=== PATIENT | female | born 1975 | race African-American/Black ===

== ENCOUNTER 2024-05-14 13:59 | Emergency (ER) | payer OTHER ==
[~2024-05-14] VITALS: Ht 152.4 cm; Wt 73.5 kg
[2024-05-14 14:09] VITALS: TEMP 98.5
[2024-05-14] MEDS: DIAZEPAM 2 MG TAB PO ONE (14:53)
[2024-05-14 15:06] LABS: BASOPHILS # (AUTO) 0.1 (0.0-0.1); BASOPHILS % 0.7 % (0.0-1.0); EOSINOPHILS # (AUTO) 0.1 (0.0-0.4); EOSINOPHILS % 1.4 % (0.0-6.0); HEMATOCRIT 45.4 % (34.2-44.1); HEMOGLOBIN 15.3 g/dL (12.0-16.0); LYMPHOCYTES # (AUTO) 2.3 (1.0-3.2); LYMPHOCYTES % 23.1 % (18.0-39.1); MEAN CORPUSCULAR HEMOGLOBIN 29.4 pg (28-32); MEAN CORPUSCULAR HGB CONC 33.7 g/dL (31-35); MEAN CORPUSCULAR VOLUME 87.1 fL (81-99); MONOCYTES # (AUTO) 0.6 (0.2-0.8); MONOCYTES % 5.8 % (4.4-11.3); NEUTROPHILS # (AUTO) 6.7 (2.1-6.9); NEUTROPHILS % 68.5 % (38.7-80.0); PLATELET COUNT 316 x10e3/uL (140-360); RED BLOOD COUNT 5.21 x10e6/uL (3.6-5.1); RED CELL DISTRIBUTION WIDTH 12.4 % (11.7-14.4); WHITE BLOOD COUNT 9.77 x10e3/uL (4.8-10.8)
[2024-05-14 15:44] LABS: ALBUMIN 4.3 g/dL (3.5-5.0); ALBUMIN/GLOBULIN RATIO 1.2 (0.8-2.0); ANION GAP 15.3 mmol/L (8-16); BILIRUBIN,TOTAL 0.5 mg/dL (0.2-1.2); CALCIUM 9.7 mg/dL (8.4-10.2); CREATININE, SERUM 1.36 mg/dL (0.57-1.11); TOTAL PROTEIN 7.8 g/dL (6.5-8.1)
[2024-05-14 15:48] LABS: POTASSIUM 3.3 mmol/L (3.5-5.1)
[2024-05-14 15:55] LABS: TROPONIN I 0.016 ng/mL (0-0.300)
[2024-05-14] MEDS: HYDRALAZINE HCL 20 MG/ML VIAL IV STA (16:31)
[2024-05-14 18:15] VITALS: PULSE 107; RESP 16
[2024-05-14 18:28] VITALS: BP 202/116; PULSE 107; RESP 16; O2SAT 99
== END 2024-05-14 18:28 | disposition home or self-care (01) ==
LOC: ER 14:03
DX: M79.651 Pain in right thigh (principal); M25.512 Pain in left shoulder; R00.0 Tachycardia, unspecified; I10 Essential (primary) hypertension
CPT/HCPCS: 36415; 71045; 80053; 84484; 85025; 93005; 93971 ×2; 99284; J0360